=== PATIENT | female | born 1950 | race Caucasian/White ===

== ENCOUNTER 2022-03-29 22:45 | Emergency (ER) | payer MEDICARE ==
[2022-03-29] MEDS ORDERED: glipiZIDE 5 MG Tab.ER PO SCH (23:45)
[2022-03-29 23:46] LABS: ESTIMATED GFR 40 mL/min (>60)
[2022-03-29] MEDS ORDERED: 50% Dextrose in Water 50 ML Syringe IVPUSH PRN (23:48)
[2022-03-29] MEDS ORDERED: Glucagon,Human Recombinant 1 MG Vial IM PRN (23:48)
[2022-03-29] MEDS ORDERED: Insulin Regular, Human 100 Units/ML 3 ML Vial SUBCUT ONE (23:48)
[2022-03-30 00:04] LABS: HEMOGLOBIN A1C 9.3 % (<5.7)
== END 2022-03-30 00:35 | disposition home or self-care (01) ==
LOC: FB.ED 22:45 → MERGE 22:45 → FB.ED 03-30 00:35
DX: R73.9 Hyperglycemia, unspecified (principal); R73.09 Other abnormal glucose
CPT/HCPCS: 36415; 80048; 83036; 84484; 99283; A9270; J1815

== ENCOUNTER 2022-03-31 10:05 | Emergency (ER) | payer MEDICARE ==
[2022-03-31] MEDS ORDERED: Glucagon,Human Recombinant 1 MG Vial IM PRN (10:21)
[2022-03-31] MEDS ORDERED: 50% Dextrose in Water 50 ML Syringe IVPUSH PRN (10:21)
[2022-03-31] MEDS ORDERED: Insulin Regular, Human 100 Units/ML 3 ML Vial SUBCUT ONE ×2 (10:21→10:24)
== END 2022-03-31 10:40 | disposition home or self-care (01) ==
LOC: MERGE 10:05 → FB.EDOUT 10:05
DX: R73.9 Hyperglycemia, unspecified (principal); Z76.0 Encounter for issue of repeat prescription
CPT/HCPCS: 82947; 99281; J1815-GY